=== PATIENT | female | born 1935 | race Caucasian/White ===

== ENCOUNTER 2020-08-26 13:52 | Observation (INO) | payer MEDICARE ==
[~2020-08-26] VITALS: Ht 175.3 cm; Wt 68.9 kg
--- NOTE | 2020-08-26 14:23 | NUR ---
requested records from [facility], an acute care hospital.
[2020-08-26 14:43] LABS: BASOPHILS % (AUTO) 1 % (0-1); EOSINOPHILS % (AUTO) 1 % (1-7); LYMPHOCYTES % (AUTO) 13 % (22-44); MEAN CORPUSCULAR HEMOGLOBIN 32.1 pg (27.0-34.8); MEAN CORPUSCULAR HGB CONC 32.8 g/dL (32.4-35.8); MEAN PLATELET VOLUME 8.3 fL (7.4-10.4); MONOCYTES % (AUTO) 7 % (2-9); NEUTROPHILS % (AUTO) 78 % (42-75); PLATELET COUNT 241 x10^3/uL (130-400); RED BLOOD COUNT 4.49 x10^6/uL (3.82-5.3); RED CELL DISTRIBUTION WIDTH 13.1 % (9.6-15.2)
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
[2020-08-26 14:54] LABS: MD NO
[2020-08-26 14:56] LABS: ALANINE AMINOTRANSFERASE 8 U/L (12-78); ALBUMIN 3.6 g/dL (3.4-5.0); ANION GAP 6 mmol/L (5-15); CHLORIDE 99 mmol/L (98-107)
[2020-08-26 15:02] LABS: SALICYLATE LEVEL < 1.7 mg/dL (2.8-20.0)
[2020-08-26 15:06] LABS: MICROSCOPIC AUTO
[2020-08-26 15:07] LABS: ALKALINE PHOSPHATASE 105 U/L (45-117); BILIRUBIN,TOTAL 0.5 mg/dL (0.2-1.0); CREATININE 0.72 mg/dL (0.55-1.02); TOTAL PROTEIN 7.3 g/dL (6.4-8.2)
[2020-08-26 15:18] LABS: AMPHETAMINE SCREEN, URINE Negative (Negative); BARBITURATE SCREEN, URINE Negative (Negative); BENZODIAZEPINE SCREEN, URINE Negative (Negative); CANNABINOID SCREEN, URINE Negative (Negative); COCAINE SCREEN, URINE Negative (Negative); METHADONE SCREEN, URINE Negative (Negative); OPIATE SCREEN, URINE Negative (Negative)
[2020-08-26] MEDS: CARBIDOPA/LEVODOPA 25 MG/100 MG TABLET PO SCH ×2 (17:00→20:18)
[2020-08-26] MEDS ORDERED: ONDANSETRON 2MG/ML, 2ML IVPush PRN (17:00)
[2020-08-26] MEDS ORDERED: ONDANSETRON ODT 4 MG PO PRN (17:00)
[2020-08-26] MEDS ORDERED: SODIUM CHLORIDE 0.9% 1,000ML IVBOLUS ONE (17:30)
[2020-08-26] MEDS ORDERED: METHOCARBAMOL 500 MG TABLET PO PRN (17:30)
[2020-08-26] MEDS ORDERED: ENOXAPARIN 40 MG/0.4 ML ONE (17:57)
[2020-08-26] MEDS: ENOXAPARIN 40 MG/0.4 ML SQ SCH (18:11)
[2020-08-26] MEDS ORDERED: METHOCARBAMOL 500 MG TABLET ONE (18:20)
[2020-08-26] MEDS ORDERED: ACETAMINOPHEN 325 MG TABLET ONE (18:20)
[2020-08-26] MEDS ORDERED: LIDODERM 5% PATCH TD ONE (18:20)
[2020-08-26] MEDS: LIDODERM 5% PATCH TD PRN (18:27)
[2020-08-26] MEDS: ACETAMINOPHEN 325 MG TABLET PO PRN ×2 (18:27→20:25)
[2020-08-26] MEDS ORDERED: CARB1TAB44 PO (18:53)
[2020-08-26] MEDS ORDERED: LEVO50TA5 PO (18:53)
[2020-08-26 20:05] VITALS: BP 150/73
[2020-08-26] MEDS: CARBIDOPA/LEVODOPA CR 50 MG/200 MG TABLET PO SCH (20:25)
[2020-08-26] MEDS: MELATONIN 5 MG TABLET PO PRN (20:25)
[2020-08-27 00:24] VITALS: BP 137/64
[2020-08-27] MEDS: ASPIRIN 81 MG TABLET EC PO SCH (05:16)
[2020-08-27] MEDS: LEVOTHYROXINE 50 MCG TABLET PO SCH (05:16)
[2020-08-27 05:53] LABS: ANION GAP 4 mmol/L (5-15); CALCIUM 9.2 mg/dL (8.5-10.1); CHLORIDE 105 mmol/L (98-107); CREATININE 0.57 mg/dL (0.55-1.02)
[2020-08-27 05:55] LABS: BASOPHILS % (AUTO) 4 % (0-1); EOSINOPHILS % (AUTO) 3 % (1-7); LYMPHOCYTES % (AUTO) 25 % (22-44); MEAN CORPUSCULAR HEMOGLOBIN 32.7 pg (27.0-34.8); MEAN CORPUSCULAR HGB CONC 32.9 g/dL (32.4-35.8); MEAN PLATELET VOLUME 8.6 fL (7.4-10.4); MONOCYTES % (AUTO) 7 % (2-9); NEUTROPHILS % (AUTO) 60 % (42-75); PLATELET COUNT 238 x10^3/uL (130-400); RED BLOOD COUNT 4.17 x10^6/uL (3.82-5.3); RED CELL DISTRIBUTION WIDTH 12.7 % (9.6-15.2)
[2020-08-27 07:35] VITALS: BP 158/73
[2020-08-27 07:47] LABS: MD SCAN
[2020-08-27] MEDS: CHOLECALCIFEROL 1,000 UNIT TABLET PO SCH (08:52)
[2020-08-27] MEDS: CALCIUM CARBONATE 500 MG TABLET PO SCH (08:52)
[2020-08-27] MEDS: CARBIDOPA/LEVODOPA 25 MG/100 MG TABLET PO SCH ×3 (08:52→16:36)
[2020-08-27] MEDS: ACETAMINOPHEN 325 MG TABLET PO PRN ×2 (08:54→20:03)
[2020-08-27 13:02] VITALS: BP 147/63
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
[2020-08-27] MEDS: ENOXAPARIN 40 MG/0.4 ML SQ SCH (16:36)
[2020-08-27 19:34] VITALS: BP 109/62
[2020-08-27] MEDS: MELATONIN 5 MG TABLET PO PRN (20:03)
[2020-08-27] MEDS: CARBIDOPA/LEVODOPA CR 50 MG/200 MG TABLET PO SCH (20:03)
[2020-08-27] MEDS: LIDODERM 5% PATCH TD PRN (20:03)
[2020-08-28 00:02] VITALS: BP 128/55
[2020-08-28] MEDS: CARBIDOPA/LEVODOPA 25 MG/100 MG TABLET PO SCH ×2 (06:00→12:08)
[2020-08-28] MEDS: ASPIRIN 81 MG TABLET EC PO SCH (06:00)
[2020-08-28] MEDS: LEVOTHYROXINE 50 MCG TABLET PO SCH (06:00)
[2020-08-28 06:30] VITALS: BP 132/70
[2020-08-28] MEDS ORDERED: ASPI81TA45 PO (07:55)
[2020-08-28] MEDS ORDERED: CARB1TAB22 PO (07:55)
[2020-08-28] MEDS ORDERED: CHOL10003 PO (07:55)
[2020-08-28] MEDS: CHOLECALCIFEROL 1,000 UNIT TABLET PO SCH (08:08)
[2020-08-28] MEDS: CALCIUM CARBONATE 500 MG TABLET PO SCH (08:08)
== END 2020-08-28 12:45 | disposition home or self-care (01) ==
LOC: ED 14:37 → SUATTDRO 16:13 → EDIP 16:31 → INTOOBSV 16:31 → 5SO 19:03 → DCLOUNGE 08-28 12:37
PROVIDERS: ADMIT Hospitalist; ATTEND Hospitalist
DX: R55 Syncope and collapse (principal); E87.1 Hypo-osmolality and hyponatremia; R19.7 Diarrhea, unspecified; N39.0 Urinary tract infection, site not specified; S72.001A Fracture of unspecified part of neck of right femur, initial encounter for closed fracture; G20 Parkinson's disease; M48.061 Spinal stenosis, lumbar region without neurogenic claudication; E03.9 Hypothyroidism, unspecified; R41.82 Altered mental status, unspecified; I44.0 Atrioventricular block, first degree; E46 Unspecified protein-calorie malnutrition; I35.8 Other nonrheumatic aortic valve disorders; Z66 Do not resuscitate; Z85.828 Personal history of other malignant neoplasm of skin; Z79.899 Other long term (current) drug therapy; Z79.82 Long term (current) use of aspirin; X58.XXXA Exposure to other specified factors, initial encounter; Y93.89 Activity, other specified; Y92.89 Other specified places as the place of occurrence of the external cause
CPT/HCPCS: 36415; 70450; 71045; 80048; 80053; 80307; 81001; 82140; 83735; 84443; 85025; 87086; 93005; 93306; 96360; 96361; 96372; 97161; 97165; 99285; G0378; J1650; J7030